=== PATIENT | female | born 1995 | race Two or more races ===

== ENCOUNTER 2018-04-22 13:11 | Emergency (ER) | payer MEDICAID ==
[~2018-04-22] VITALS: Ht 162.6 cm; Wt 54.4 kg
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
[2018-04-22] MEDS ORDERED: LORazepam Inj 2mg/ml 1ml IM ONE (13:30)
[2018-04-22] MEDS ORDERED: LORazepam 1mg tab ORAL ONE (13:30)
[2018-04-22 14:06] VITALS: BP 110/60
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
--- NOTE | 2018-04-22 14:14 | NUR ---
pt. went down for CT scan
--- NOTE | 2018-04-22 14:16 | NUR ---
ED Nurse Note: patient came back, she refused CT
--- NOTE | 2018-04-22 14:33 | NUR ---
ED Nurse Note: patient leaving the hospital against medical advice, all belongings were given to the patient
[2018-04-22 14:35] VITALS: BP 110/61
== END 2018-04-22 14:51 | disposition left against medical advice (07) ==
LOC: EDBD 13:11 → EMR 13:55
DX: S00.03XA Contusion of scalp, initial encounter (principal); Y04.2XXA Assault by strike against or bumped into by another person, initial encounter; Y92.810 Car as the place of occurrence of the external cause; R51 Headache
CPT/HCPCS: 81025; 96372; 99284

== ENCOUNTER 2019-04-19 01:31 | Emergency (ER) | payer OTHER, MEDICAID ==
[~2019-04-19] VITALS: Ht 149.9 cm; Wt 49.9 kg
--- NOTE | 2019-04-19 01:35 | NUR ---
ED Nurse Note: FARHAD witt established. Blood specimen collected and sent to lab.
--- NOTE | 2019-04-19 01:40 | Emergency Room Report ---
History of Present Illness General Chief Complaint: To Be Triaged Source: Patient, Law Enforcement Present Illness HPI Disclaimer: Please note that this report is being documented using [employer] technology. This can lead to erroneous entry secondary to incorrect interpretation by the dictating instrument. HPI: 23-year-old female history of anxiety, panic disorder, depression and asthma presents for evaluation of anxiety. States she takes Xanax 3 times daily but did not get her evening dose. She is currently in police custody but was complaining of anxiety/panic attack on her way to long term. Notes tightness across her chest, hyperventilation. Denies chest pain. Denies cough, fever, chills, vomiting, nausea, diarrhea. PMH: Depression, anxiety disorder, panic attacks, asthma PSH: Reviewed Allergies: None reported Allergies: Coded Allergies: No Known Allergies (Unverified , 04/22/18) Review of Systems All Other Systems: negative except mentioned in HPI Physical Exam Vital Signs Date Time Temp Pulse Resp B/P (MAP) Pulse Ox O2 Delivery O2 Flow Rate FiO2 04/19/19 01:39 97.7 96 18 151/126 (134) 100 Room Air General: Awake and alert, anxious appearing HEENT: NC/AT. EOMI. Cardiovascular: RRR. S1 and S2 normal. No murmur appreciated Resp: Normal work of breathing. No cough, wheezing or crackles appreciated Abdomen: Abdomen is soft, nondistended. Nontender Skin: Intact. No abrasions, laceration or rash over the exposed skin MSK: Normal tone and bulk. Moving all extremities. No obvious deformity. Neuro: Awake and alert. Mentating appropriately. Anxious appearing. Avoidant gaze Medical Decision Making Diagnostic Impression: Primary Impression: Anxiety Additional Impression: Chest tightness ER Course 23-year-old female history of anxiety disorder presents for evaluation of anxiety/panic attacks complaining of tightness in the chest hyperventilation. Differential includes was not limited to ACS, arrhythmia, panic attack, mild asthma exacerbation, substance abuse to name a few. Patient says she takes Xanax 3 times daily and did not get her evening dose. As she is currently in police custody and did not get her nighttime dose of benzodiazepine she might be in mild withdrawal and it triggered her anxiety symptoms. Will provide anxiolytics but will require cardiac work-up to rule out cardiac causes of chest discomfort. Lungs are clear, no wheezing. She arrives with stable vital signs. Laboratory Tests Test 04/19/19 01:43 White Blood Count 8.9 K/UL (4.8-10.8) Red Blood Count 4.86 M/UL (4.20-5.40) Hemoglobin 14.2 G/DL (12.0-16.0) Hematocrit 41.6 % (37.0-47.0) Mean Corpuscular Volume 86 FL (80-99) Mean Corpuscular Hemoglobin 29.3 PG (27.0-31.0) Mean Corpuscular Hemoglobin Concent 34.2 G/DL (32.0-36.0) Red Cell Distribution Width 11.9 % (11.6-14.8) Platelet Count 328 K/UL (150-450) Mean Platelet Volume 6.4 FL (6.5-10.1) L Neutrophils (%) (Auto) 49.5 % (45.0-75.0) Lymphocytes (%) (Auto) 40.4 % (20.0-45.0) Monocytes (%) (Auto) 6.0 % (1.0-10.0) Eosinophils (%) (Auto) 2.8 % (0.0-3.0) Basophils (%) (Auto) 1.4 % (0.0-2.0) Sodium Level 140 MMOL/L (136-145) Potassium Level 3.6 MMOL/L (3.5-5.1) Chloride Level 104 MMOL/L (98-107) Carbon Dioxide Level 26 MMOL/L (21-32) Anion Gap 10 mmol/L (5-15) Blood Urea Nitrogen 19 mg/dL (7-18) H Creatinine 1.0 MG/DL (0.55-1.30) Estimate Glomerular Filtration Rate > 60 mL/min (>60) Glucose Level 80 MG/DL (74-106) Calcium Level 9.6 MG/DL (8.5-10.1) Total Bilirubin 0.9 MG/DL (0.2-1.0) Aspartate Amino Transferase (AST) 24 U/L (15-37) Alanine Aminotransferase (ALT) 32 U/L (12-78) Alkaline Phosphatase 81 U/L (46-116) Troponin I 0.000 ng/mL (0.000-0.056) Total Protein 8.0 G/DL (6.4-8.2) Albumin 4.1 G/DL (3.4-5.0) Globulin 3.9 g/dL Albumin/Globulin Ratio 1.1 (1.0-2.7) EKG Diagnostic Results EKG Time: 01:46 Rate: normal Rhythm: NSR ST Segments: no acute changes Other Impression Sinus rhythm, normal axis, prolonged QTC at [address] segment changes Rhythm Strip Diag. Results Rhythm Strip Time: 01:46 EP Interpretation: yes Rate: 80s Rhythm: NSR, no PVC's, no ectopy Chest X-Ray Diagnostic Results Chest X-Ray Diagnostic Results : Chest X-Ray Ordered: Yes # of Views/Limited/Complete: 1 View Indication: Chest Pain EP Interpretation: Yes Interpretation: no consolidation, no effusion, no pneumothorax, no acute cardiopulmonary disease Impression: No acute disease Electronically Signed by: Electronically signed by Dr. Froy Singh Reevaluation Time: 02:26 Reevaluation Impression EKG nonischemic. Chest x-ray unremarkable. Labs including cardiac enzymes are within normal limits. Patient's vital signs remained stable. She is emotional and I believe her symptoms are related to her anxiety disorder. She did note some improvement after receiving Ativan. She is medically cleared for booking. Will discharge to law enforcement custody. She can follow-up with her PMD when able. Her albuterol inhaler was refilled. Disposition: D/C TO [facility] ENF[facility]CEMENT IN CUST Condition: Stable Scripts Albuterol Sulfate* (ALBUTEROL SULFATE MDI*) 8.5 Gm Hfa.aer.ad 2 PUFF INH Q4H PRN for cough/wheezing, #1 EA 0 Refills Prov: Froy Singh MD 04/19/19 Froy Singh MD Apr 19, 2019 01:40
[2019-04-19 01:42] VITALS: BP 151/126
--- NOTE | 2019-04-19 01:42 | NUR ---
ED Nurse Note: Patient brought in by ANNETTE c/o asthma exacerbation. Pt has hx of asthma and she has been using inhaler at home. 100% RA. Pt is under custody. [employer] at bedside.
[2019-04-19] MEDS ORDERED: LORazepam Inj 2mg/ml 1ml IV ONE (01:45)
--- NOTE | 2019-04-19 01:47 | NUR ---
ED Nurse Note: Xray at bedside.
[2019-04-19 01:54] LABS: BASOPHILS % (AUTO) 1.4 % (0.0-2.0); EOSINOPHILS % (AUTO) 2.8 % (0.0-3.0); HEMATOCRIT 41.6 % (37.0-47.0); HEMOGLOBIN 14.2 G/DL (12.0-16.0); LYMPHOCYTES % (AUTO) 40.4 % (20.0-45.0); MEAN CORPUSCULAR VOLUME 86 FL (80-99); NEUTROPHILS % (AUTO) 49.5 % (45.0-75.0); PLATELET COUNT 328 K/UL (150-450); RED BLOOD COUNT 4.86 M/UL (4.20-5.40); RED CELL DISTRIBUTION WIDTH 11.9 % (11.6-14.8); WHITE BLOOD COUNT 8.9 K/UL (4.8-10.8)
[2019-04-19 02:11] LABS: ANION GAP 10 mmol/L (5-15); BLOOD UREA NITROGEN 19 mg/dL (7-18); CALCIUM 9.6 MG/DL (8.5-10.1); CARBON DIOXIDE 26 MMOL/L (21-32); CHLORIDE 104 MMOL/L (98-107); POTASSIUM 3.6 MMOL/L (3.5-5.1); SODIUM 140 MMOL/L (136-145)
[2019-04-19 02:15] LABS: ALANINE AMINOTRANSFERASE 32 U/L (12-78); ALBUMIN 4.1 G/DL (3.4-5.0); ALBUMIN/GLOBULIN RATIO 1.1 (1.0-2.7); ALKALINE PHOSPHATASE 81 U/L (46-116); ASPARTATE AMINO TRANSFERASE 24 U/L (15-37); BILIRUBIN,TOTAL 0.9 MG/DL (0.2-1.0)
[2019-04-19] MEDS ORDERED: ALBUTEROL SULF8.5 GM INH (02:19)
[2019-04-19 02:29] VITALS: BP 128/73
--- NOTE | 2019-04-19 02:29 | NUR ---
ED Nurse Note: Pt cleared by ERMD for discharge. DC instructions/prescription was given and explained to pt and verbalized understanding of teachings. All medical deviecs such as ID band and IV line removed. Pt is AAO x4, ambulatory and left with all personal belongings. PT is under custody and was accompanied by [employer].
--- NOTE | 2019-04-19 12:20 | Diagnostic Imaging Report ---
Indication: Shortness of breath Technique: One view of the chest Comparison: none Findings: Lungs and pleural spaces are clear. Heart size is normal. Impression: No acute process
== END 2019-04-19 02:29 ==
LOC: EMR 01:47
DX: F41.9 Anxiety disorder, unspecified (principal); R07.9 Chest pain, unspecified
CPT/HCPCS: 36415; 71045; 80053; 84484; 85025; 93005; 96374; 99284